=== PATIENT | male | born 1955 | race Hispanic/Latino ===

== ENCOUNTER 2018-02-21 07:44 | Emergency (ER) | payer SELFPAY ==
[2018-02-21 08:27] LABS: #Eosinphils 0.2 thou/uL (0.0-0.7); #Lymphocytes 1.1 thou/uL (1.20-3.40); #Monocytes 0.7 thou/uL (0.11-0.59); #Neutrophils 6.9 thou/uL (1.40-6.50); %Basophils 0.4 % (0.0-1.0); %Eosinophils 2.1 % (0.0-10.0); %Lymphocytes 12.7 % (21.0-51.0); %Monocytes 7.9 % (0.0-10.0); %Neutrophils 76.8 % (42.0-75.0); Hemoglobin 13.3 g/dL (14.0-18.0); Mean Corpuscular HGB CONC 33.1 g/dL (32.0-36.0); Mean Corpuscular Hemoglobin 28.6 pg (27.0-31.0); Mean Corpuscular Volume 86.5 fL (78.0-98.0); Mean Platelet Volume 6.6 fL (7.4-10.4); Platelet Count 300 thou/uL (130-400); RBC Distribution Width 14.6 % (11.5-14.5); Red Blood Cell (RBC) Count 4.66 mill/uL (4.70-6.10)
[2018-02-21 08:51] LABS: CKMB 2.1 ng/mL (0-6.6); Troponin I 0.029 ng/mL (< 0.028)
[2018-02-21 09:03] LABS: ALT (SGPT) 28 U/L (8-55); AST (SGOT) 31 U/L (5-34); Alkaline Phosphatase 137 U/L (40-150); Anion Gap 14 mmol/L (10-20); BUN (Urea Nitrogen) 17 mg/dL (8.4-25.7); Bilirubin, Total 0.9 mg/dL (0.2-1.2); CK (CPK) 130 U/L (30-200); Calc. Creatinine Clearance 0 mL/min (70-130); Calcium 8.9 mg/dL (7.8-10.44); Carbon Dioxide 26 mmol/L (23-31); Chloride 102 mmol/L (98-107); Estimated GFR-MDRD 62; Globulin 5.5 g/dL (2.4-3.5); Glucose 119 mg/dL (80-115); Lipase 16 U/L (8-78); Potassium 3.5 mmol/L (3.5-5.1); Protein, Total 9.5 g/dL (5.8-8.1); Sodium 138 mmol/L (136-145)
--- NOTE | 2018-02-21 10:04 | RAD ---
SINGLE VIEW OF THE CHEST: COMPARISON: None. HISTORY: Chest pain and swelling in the right leg. FINDINGS: A single view of the chest shows an enlarged cardiomediastinal silhouette. There is no evidence of c onsolidation, mass, or pleural effusion. Degenerative changes are seen in the spine. IMPRESSION: Cardiomegaly. POS: [facility]
[2018-02-21] MEDS ORDERED: Furosemide 40 MG TAB ONE (10:15)
[2018-02-21] MEDS ORDERED: Acetaminophen 500 MG TAB ONE (10:15)
--- NOTE | 2018-02-21 10:26 | ULT ---
BILATERAL LOWER EXTREMITY VENOUS ULTRASOUND: COMPARISON: None. HISTORY: Right lower extremity pain and chronic venous stasis in both legs with edema. Elevated D-dimer. TECHNIQUE: Multiplanar, starks scale, and color Doppler images were obtained in a bilateral lower extremity venous ultrasound. Spectral analysis of the Doppler waveforms was performed. FINDINGS: The bilateral common femoral vein, profunda femoral vein, superficial femoral vein, and popliteal vei ns are normal in appearance without visible thrombus. These vessels demonstrate normal compression, flow, and augmentation. The posterior tibial veins and greater saphenous veins are also patent. IMPRESSION: No evidence of deep vein thrombosis. POS: [facility]
[2018-02-21 10:47] LABS: Troponin I 0.028 ng/mL (< 0.028)
== END 2018-02-21 11:50 | disposition home or self-care (01) ==
LOC: ERS 07:44
DX: I50.9 Heart failure, unspecified (principal); R60.0 Localized edema
CPT/HCPCS: 36415; 71045; 80053; 82553; 83690; 83880; 84484; 85025; 85379; 93005; 93970

== ENCOUNTER 2019-04-20 18:37 | Emergency (ER) | payer SELFPAY | END 2019-04-20 23:00 | disposition home or self-care (01) | LOC: ERS 18:37 | DX: I83.891 Varicose veins of right lower extremity with other complications (principal); I10 Essential (primary) hypertension; Z79.899 Other long term (current) drug therapy | CPT/HCPCS: 99282 ==

== ENCOUNTER 2021-05-15 11:47 | Inpatient (IN) | payer SELFPAY ==
[~2021-05-15 11:47] MED LIST: Iopamidol-370 76% 500 ML 1 ML ONE
[2021-05-15 12:58] LABS: #Eosinphils 0.2 thou/uL (0.0-0.7); #Lymphocytes 0.9 thou/uL (1.20-3.40); #Monocytes 0.6 thou/uL (0.11-0.59); #Neutrophils 5.7 thou/uL (1.40-6.50); %Basophils 0.4 % (0.0-1.0); %Eosinophils 2.5 % (0.0-10.0); %Lymphocytes 12.2 % (21.0-51.0); %Monocytes 7.8 % (0.0-10.0); %Neutrophils 77.1 % (42.0-75.0); Hemoglobin 14.4 g/dL (14.0-18.0); Mean Corpuscular HGB CONC 30.7 g/dL (32.0-36.0); Mean Corpuscular Hemoglobin 26.8 pg (27.0-31.0); Mean Corpuscular Volume 87.4 fL (78.0-98.0); Mean Platelet Volume 8.2 fL (7.4-10.4); Platelet Count 241 thou/uL (130-400); RBC Distribution Width 17.5 % (11.5-14.5); Red Blood Cell (RBC) Count 5.36 mill/uL (4.70-6.10); White Blood Cell (WBC) Count 7.4 thou/uL (4.8-10.8)
[2021-05-15 13:09] LABS: ALT (SGPT) 14 U/L (8-55); AST (SGOT) 28 U/L (5-34); Albumin 3.7 g/dL (3.4-4.8); Alkaline Phosphatase 123 U/L (40-110); Anion Gap 15 mmol/L (10-20); BUN (Urea Nitrogen) 19 mg/dL (8.4-25.7); Bilirubin, Total 0.9 mg/dL (0.2-1.2); Calc. Creatinine Clearance 0 mL/min (70-130); Calcium 8.5 mg/dL (7.8-10.44); Carbon Dioxide 25 mmol/L (23-31); Chloride 105 mmol/L (98-107); Globulin 4.3 g/dL (2.4-3.5); Glucose 97 mg/dL (80-115); Lipase 17 U/L (8-78); Potassium 4.5 mmol/L (3.5-5.1); Sodium 140 mmol/L (136-145)
[2021-05-15] MEDS ORDERED: Diltiazem 125 MG/25 ML ONE ×2 (13:11→15:48)
[2021-05-15 14:08] LABS: CKMB 3.2 ng/mL (0-6.6)
[2021-05-15 14:41] LABS: Clarity Clear (Clear); Glucose, Urine (Dipstick) Normal (Negative); Ketone, Urine Negative (Negative); Leukocyte 75 Leu/uL (Negative); Nitrite Negative (Negative); Protein, Urine (Dipstick) 300 mg/dL (Neg-Trace); Specific Gravity, Urine 1.022 (1.002-1.036)
[2021-05-15 14:42] LABS: Bilirubin Negative (Negative); Blood, Urine Negative (Negative); Urobilinogen Normal mg/dL (Less than 2)
[2021-05-15 14:50] LABS: RBC/HPF None Seen HPF (0-3)
[2021-05-15 14:50] LABS: INR-International Normal Ratio 1.2; PTT 33.1 sec (22.9-36.1); Prothrombin Time 15.2 sec (12.0-14.7)
[2021-05-15 14:52] LABS: Bacteria/HPF None Seen HPF (None Seen); Squamous Epithelial None Seen HPF (0-3)
[2021-05-15] MEDS ORDERED: Acetaminophen 500 MG TAB ONE (15:48)
[2021-05-15] MEDS ORDERED: Aspirin Chewable 81 MG TAB ONE (15:48)
[2021-05-15] MEDS ORDERED: Enoxaparin Sodium 100 MG/ML SYRINGE ONE (16:06)
[2021-05-15] MEDS ORDERED: Aspirin 325 MG TAB ONE (16:07)
[2021-05-15] MEDS ORDERED: Enoxaparin Sodium 60 MG/0.6 ML SYRINGE ONE (16:08)
[2021-05-15] MEDS ORDERED: Enoxaparin Sodium 30 MG/0.3 ML SYRINGE ONE (16:08)
[2021-05-15] MEDS ORDERED: Ondansetron ODT 4 MG TAB SL PRN (18:30)
[2021-05-15] MEDS ORDERED: Sodium Chloride 0.9% 1,000 ML IV SCH (18:30)
[2021-05-15] MEDS ORDERED: Ondansetron PF 4 MG/2 ML Vial IVP PRN ×2 (18:30→18:35)
[2021-05-15] MEDS ORDERED: Acetaminophen 325 MG TAB PO PRN ×2 (18:30→18:35)
[2021-05-15] MEDS ORDERED: Ondansetron ODT 4 MG TAB PO PRN (18:35)
[2021-05-15] MEDS ORDERED: Calcium Carbonate 500 MG ChewTAB PO PRN (18:35)
[2021-05-15] MEDS ORDERED: [UNRECOGNIZED DRUG - REMARK] FS PRN (18:37)
[2021-05-15] MEDS ORDERED: Diltiazem 125 MG in Sodium Chloride 0.9% 100 ML IVPB SCH (18:45)
[2021-05-15 19:42] LABS: Magnesium 1.8 mg/dL (1.6-2.6)
[2021-05-15 19:47] LABS: Troponin I 0.094 ng/mL (< 0.028)
[2021-05-15] MEDS: Famotidine 20 MG TAB PO SCH (20:46)
[2021-05-15] MEDS: Senokot S 8.6-50 MG TAB PO SCH (20:46)
[2021-05-15] MEDS: Carvedilol 3.125 MG TAB PO SCH (20:46)
[2021-05-16] MEDS ORDERED: Enoxaparin Sodium 100 MG/ML SYRINGE SC SCH (04:00)
[2021-05-16 04:37] LABS: #Eosinphils 0.1 thou/uL (0.0-0.7); #Lymphocytes 0.8 thou/uL (1.20-3.40); #Monocytes 0.8 thou/uL (0.11-0.59); #Neutrophils 7.5 thou/uL (1.40-6.50); %Basophils 0.5 % (0.0-1.0); %Eosinophils 1.2 % (0.0-10.0); %Lymphocytes 8.4 % (21.0-51.0); %Monocytes 8.6 % (0.0-10.0); %Neutrophils 81.4 % (42.0-75.0); Hemoglobin 14.5 g/dL (14.0-18.0); Mean Corpuscular Hemoglobin 26.4 pg (27.0-31.0); Mean Corpuscular Volume 87.9 fL (78.0-98.0); Mean Platelet Volume 8.9 fL (7.4-10.4); Platelet Count 227 thou/uL (130-400); RBC Distribution Width 17.7 % (11.5-14.5); Red Blood Cell (RBC) Count 5.49 mill/uL (4.70-6.10); White Blood Cell (WBC) Count 9.2 thou/uL (4.8-10.8)
[2021-05-16 04:57] LABS: ALT (SGPT) 15 U/L (8-55); AST (SGOT) 25 U/L (5-34); Albumin 3.7 g/dL (3.4-4.8); Alkaline Phosphatase 110 U/L (40-110); Anion Gap 15 mmol/L (10-20); BUN (Urea Nitrogen) 21 mg/dL (8.4-25.7); Bilirubin, Total 1.5 mg/dL (0.2-1.2); Calc. Creatinine Clearance 49 mL/min (70-130); Calcium 8.2 mg/dL (7.8-10.44); Carbon Dioxide 22 mmol/L (23-31); Chloride 106 mmol/L (98-107); Globulin 4.3 g/dL (2.4-3.5); Glucose 115 mg/dL (80-115); Magnesium 2.1 mg/dL (1.6-2.6); Potassium 4.6 mmol/L (3.5-5.1); Sodium 138 mmol/L (136-145)
[2021-05-16] MEDS: Furosemide 40 MG/4 ML VIAL SLOW IVP SCH ×2 (05:43→14:18)
[2021-05-16] MEDS: Senokot S 8.6-50 MG TAB PO SCH ×2 (08:26→21:10)
[2021-05-16] MEDS: Carvedilol 3.125 MG TAB PO SCH (08:27)
[2021-05-16] MEDS: Aspirin 81 mg Enteric Coated Tablet PO SCH (08:27)
[2021-05-16 12:03] LABS: SARS-CoV-2 PCR by NAA Not Detected (NotDetected)
[2021-05-16] MEDS ORDERED: hydrALAZINE 20 MG/ML VIAL SLOW IVP PRN (13:36)
[2021-05-16] MEDS: Enoxaparin Sodium 100 MG/ML SYRINGE SC SCH ×2 (14:12→21:09)
[2021-05-16 17:25] LABS: Creatinine, Urine 25.35 mg/dL (63-166)
[2021-05-16] MEDS: Carvedilol 6.25 MG TAB PO SCH (21:10)
[2021-05-16] MEDS: Famotidine 20 MG TAB PO SCH (21:11)
[2021-05-17 05:02] LABS: #Basophils 0.1 thou/uL (0.0-0.2); #Eosinphils 0.3 thou/uL (0.0-0.7); #Lymphocytes 1.1 thou/uL (1.20-3.40); #Neutrophils 5.7 thou/uL (1.40-6.50); %Basophils 1.1 % (0.0-1.0); %Eosinophils 3.2 % (0.0-10.0); %Lymphocytes 13.4 % (21.0-51.0); %Monocytes 11.7 % (0.0-10.0); %Neutrophils 70.6 % (42.0-75.0); Hemoglobin 14.3 g/dL (14.0-18.0); Mean Corpuscular HGB CONC 30.8 g/dL (32.0-36.0); Mean Corpuscular Hemoglobin 26.9 pg (27.0-31.0); Mean Corpuscular Volume 87.3 fL (78.0-98.0); Mean Platelet Volume 9.2 fL (7.4-10.4); Platelet Count 224 thou/uL (130-400); RBC Distribution Width 17.4 % (11.5-14.5); Red Blood Cell (RBC) Count 5.32 mill/uL (4.70-6.10); White Blood Cell (WBC) Count 8.1 thou/uL (4.8-10.8)
[2021-05-17 05:22] LABS: ALT (SGPT) 17 U/L (8-55); AST (SGOT) 30 U/L (5-34); Albumin 3.6 g/dL (3.4-4.8); Alkaline Phosphatase 104 U/L (40-110); Anion Gap 16 mmol/L (10-20); BUN (Urea Nitrogen) 29 mg/dL (8.4-25.7); Bilirubin, Total 1.2 mg/dL (0.2-1.2); Calc. Creatinine Clearance 51 mL/min (70-130); Calcium 8.4 mg/dL (7.8-10.44); Carbon Dioxide 25 mmol/L (23-31); Chloride 103 mmol/L (98-107); Globulin 4.2 g/dL (2.4-3.5); Glucose 92 mg/dL (80-115); Potassium 4.3 mmol/L (3.5-5.1); Protein, Total 7.8 g/dL (5.8-8.1); Sodium 140 mmol/L (136-145)
[2021-05-17] MEDS: Furosemide 40 MG/4 ML VIAL SLOW IVP SCH ×2 (05:31→14:00)
[2021-05-17] MEDS: Aspirin 81 mg Enteric Coated Tablet PO SCH (08:46)
[2021-05-17] MEDS: Senokot S 8.6-50 MG TAB PO SCH ×2 (08:46→21:31)
[2021-05-17] MEDS: Enoxaparin Sodium 100 MG/ML SYRINGE SC SCH ×2 (08:47→21:30)
[2021-05-17] MEDS: Carvedilol 6.25 MG TAB PO SCH ×2 (08:47→21:31)
[2021-05-17] MEDS ORDERED: Spironolactone 25 MG TAB PO SCH (10:00)
[2021-05-17] MEDS ORDERED: Metolazone 2.5 MG TAB PO SCH (13:30)
[2021-05-17] MEDS: Famotidine 20 MG TAB PO SCH (21:31)
[2021-05-18] MEDS: Furosemide 40 MG/4 ML VIAL SLOW IVP SCH ×3 (06:00→15:09)
[2021-05-18] MEDS ORDERED: Spironolactone 25 MG TAB PO SCH ×2 (08:00→19:15)
[2021-05-18] MEDS: Aspirin 81 mg Enteric Coated Tablet PO SCH (09:04)
[2021-05-18] MEDS: Senokot S 8.6-50 MG TAB PO SCH ×2 (09:04→21:04)
[2021-05-18] MEDS: Carvedilol 6.25 MG TAB PO SCH ×2 (09:04→21:04)
[2021-05-18] MEDS: Enoxaparin Sodium 100 MG/ML SYRINGE SC SCH ×2 (09:04→21:06)
[2021-05-18 12:19] LABS: #Basophils 0.1 thou/uL (0.0-0.2); #Eosinphils 0.2 thou/uL (0.0-0.7); #Monocytes 0.8 thou/uL (0.11-0.59); %Basophils 0.7 % (0.0-1.0); %Eosinophils 2.9 % (0.0-10.0); %Lymphocytes 14.3 % (21.0-51.0); %Monocytes 10.7 % (0.0-10.0); %Neutrophils 71.4 % (42.0-75.0); Hemoglobin 14.3 g/dL (14.0-18.0); Mean Corpuscular Hemoglobin 26.9 pg (27.0-31.0); Mean Corpuscular Volume 86.8 fL (78.0-98.0); Mean Platelet Volume 8.3 fL (7.4-10.4); Platelet Count 256 thou/uL (130-400); Red Blood Cell (RBC) Count 5.34 mill/uL (4.70-6.10)
[2021-05-18 12:41] LABS: Anion Gap 13 mmol/L (10-20); Anion Gap 17 mmol/L (10-20); BUN (Urea Nitrogen) 30 mg/dL (8.4-25.7); Calc. Creatinine Clearance 50 mL/min (70-130); Calc. Creatinine Clearance 51 mL/min (70-130); Calcium 9.4 mg/dL (7.8-10.44); Carbon Dioxide 29 mmol/L (23-31); Carbon Dioxide 33 mmol/L (23-31); Chloride 97 mmol/L (98-107); Chloride 98 mmol/L (98-107); Glucose 105 mg/dL (80-115); Potassium 3.6 mmol/L (3.5-5.1); Sodium 139 mmol/L (136-145); Sodium 140 mmol/L (136-145)
[2021-05-18 12:42] LABS: ALT (SGPT) 17 U/L (8-55); AST (SGOT) 30 U/L (5-34); Albumin 3.9 g/dL (3.4-4.8); Alkaline Phosphatase 120 U/L (40-110); Bilirubin, Total 1.1 mg/dL (0.2-1.2); Calcium 9.4 mg/dL (7.8-10.44); Globulin 4.9 g/dL (2.4-3.5); Glucose 106 mg/dL (80-115); Magnesium 2.1 mg/dL (1.6-2.6); Protein, Total 8.8 g/dL (5.8-8.1)
[2021-05-18] MEDS: Famotidine 20 MG TAB PO SCH (21:05)
[2021-05-19] MEDS: Furosemide 40 MG/4 ML VIAL SLOW IVP SCH (05:58)
[2021-05-19] MEDS ORDERED: Carvedilol 3.125 MG TAB PO SCH (08:00)
[2021-05-19] MEDS: Aspirin 81 mg Enteric Coated Tablet PO SCH (08:47)
[2021-05-19] MEDS: Enoxaparin Sodium 100 MG/ML SYRINGE SC SCH ×2 (08:47→21:26)
[2021-05-19] MEDS: Senokot S 8.6-50 MG TAB PO SCH ×2 (08:48→21:26)
[2021-05-19] MEDS: Spironolactone 100 MG TAB PO SCH (08:49)
[2021-05-19] MEDS ORDERED: Acetylcysteine 20% 200 MG/ML 30 ML VIAL PO SCH (10:00)
[2021-05-19 13:59] LABS: Chloride 94 mmol/L (98-107); Potassium 3.7 mmol/L (3.5-5.1); Sodium 138 mmol/L (136-145)
[2021-05-19 14:00] LABS: Calcium 9.5 mg/dL (7.8-10.44); Glucose 124 mg/dL (80-115)
[2021-05-19 14:02] LABS: Anion Gap 16 mmol/L (10-20); Carbon Dioxide 32 mmol/L (23-31)
[2021-05-19 14:04] LABS: BUN (Urea Nitrogen) 29 mg/dL (8.4-25.7); Calc. Creatinine Clearance 49 mL/min (70-130)
[2021-05-19] MEDS ORDERED: Communication Order-Pharmacy FS SCH (16:30)
[2021-05-19] MEDS: Famotidine 20 MG TAB PO SCH (21:26)
[2021-05-19] MEDS: Acetylcysteine 20% 200 MG/ML 30 ML VIAL PO SCH (22:09)
[2021-05-20 04:53] VITALS: BMI 33.6
[2021-05-20 05:11] LABS: #Eosinphils 0.3 thou/uL (0.0-0.7); #Lymphocytes 1.2 thou/uL (1.20-3.40); #Monocytes 0.8 thou/uL (0.11-0.59); #Neutrophils 3.8 thou/uL (1.40-6.50); %Basophils 0.4 % (0.0-1.0); %Eosinophils 4.6 % (0.0-10.0); %Monocytes 13.3 % (0.0-10.0); %Neutrophils 62.6 % (42.0-75.0); Hemoglobin 14.5 g/dL (14.0-18.0); Mean Corpuscular HGB CONC 30.8 g/dL (32.0-36.0); Mean Corpuscular Hemoglobin 26.4 pg (27.0-31.0); Mean Corpuscular Volume 85.6 fL (78.0-98.0); Mean Platelet Volume 8.7 fL (7.4-10.4); Platelet Count 238 thou/uL (130-400); RBC Distribution Width 16.8 % (11.5-14.5); Red Blood Cell (RBC) Count 5.51 mill/uL (4.70-6.10); White Blood Cell (WBC) Count 6.1 thou/uL (4.8-10.8)
[2021-05-20 05:38] LABS: Anion Gap 14 mmol/L (10-20); BUN (Urea Nitrogen) 33 mg/dL (8.4-25.7); Calc. Creatinine Clearance 45 mL/min (70-130); Calcium 9.3 mg/dL (7.8-10.44); Carbon Dioxide 29 mmol/L (23-31); Chloride 95 mmol/L (98-107); Glucose 88 mg/dL (80-115); Magnesium 2.1 mg/dL (1.6-2.6); Potassium 4.1 mmol/L (3.5-5.1); Sodium 134 mmol/L (136-145)
[2021-05-20] MEDS ORDERED: Sodium Chloride 0.9% 1,000 ML IV SCH (06:00)
[2021-05-20] MEDS ORDERED: Lidocaine 1% (PF) 30 ML VIAL ONE (07:06)
[2021-05-20] MEDS ORDERED: Midazolam HCl 2 mg/2 ml Vial ONE (07:14)
[2021-05-20] MEDS ORDERED: Fentanyl 100 MCG/2 ML VIAL ONE (07:14)
[2021-05-20] MEDS ORDERED: hydrALAZINE 20 MG/ML VIAL ONE (07:29)
[2021-05-20] MEDS ORDERED: Furosemide 20 MG/2 ML VIAL SLOW IVP SCH (09:00)
[2021-05-20] MEDS: Senokot S 8.6-50 MG TAB PO SCH ×2 (10:26→21:35)
[2021-05-20] MEDS: Acetylcysteine 20% 200 MG/ML 30 ML VIAL PO SCH ×2 (10:26→21:36)
[2021-05-20] MEDS: Aspirin 81 mg Enteric Coated Tablet PO SCH (10:26)
[2021-05-20] MEDS ORDERED: Sodium Chloride 0.9% 200 ML IV PRN (12:22)
[2021-05-20] MEDS ORDERED: Acetaminophen/Codeine 30-300mg Tablet PO PRN ×2 (12:22)
[2021-05-20] MEDS ORDERED: Nitroglycerin 0.4 MG TAB (25 Tab Bottle) SL PRN (12:22)
[2021-05-20] MEDS: Sodium Chloride 0.9% 1,000 ML IV SCH ×2 (12:44→16:43)
[2021-05-20] MEDS ORDERED: Iopamidol 370 76% 100 ML VIAL ONE (15:16)
[2021-05-20] MEDS: Famotidine 20 MG TAB PO SCH (21:35)
[2021-05-21] MEDS: Aspirin 81 mg Enteric Coated Tablet PO SCH (07:46)
[2021-05-21] MEDS: Senokot S 8.6-50 MG TAB PO SCH (07:46)
[2021-05-21] MEDS ORDERED: Lidocaine 1% w/Epinephrine 1:100K 20 ML VIAL ONE (07:54)
[2021-05-21] MEDS ORDERED: Triple Antibiotic Oint 1 GM Packet TOP PRN (09:10)
[2021-05-21 10:25] LABS: Albumin 3.5 g/dL (3.4-4.8); Anion Gap 13 mmol/L (10-20); BUN (Urea Nitrogen) 26 mg/dL (8.4-25.7); BUN/Creatinine Ratio 15.66; Calc. Creatinine Clearance 51 mL/min (70-130); Calcium 9.1 mg/dL (7.8-10.44); Carbon Dioxide 23 mmol/L (23-31); Chloride 103 mmol/L (98-107); Glucose 161 mg/dL (80-115); Phosphorus 2.3 mg/dL (2.3-4.7); Potassium 4.1 mmol/L (3.5-5.1); Sodium 135 mmol/L (136-145)
[2021-05-21] MEDS: Spironolactone 100 MG TAB PO SCH (11:51)
[2021-05-21] MEDS ORDERED: Isosorbide Dinitrate 20 MG TAB PO SCH (15:00)
[2021-05-21] MEDS ORDERED: hydrALAZINE 10 MG TAB PO SCH (15:00)
[2021-05-21 16:26] VITALS: BP 150/70; TEMP 98
[2021-05-21] MEDS ORDERED: Cephalexin 250 MG CAP PO SCH (21:00)
== END 2021-05-21 19:04 | disposition home or self-care (01) | DRG 286 ==
LOC: ERS 11:47 → 2NO 16:04
PROVIDERS: ADMIT Internal Medicine; ATTEND Internal Medicine
PROC: 4A023N7 Measurement of Cardiac Sampling and Pressure, Left Heart, Percutaneous Approach (ICD-10-PCS; principal; 2021-05-20)
PROC: B2111ZZ Fluoroscopy of Multiple Coronary Arteries using Low Osmolar Contrast (ICD-10-PCS; 2021-05-20)
DX: I13.0 Hypertensive heart and chronic kidney disease with heart failure and stage 1 through stage 4 chronic kidney disease, or unspecified chronic kidney disease (principal); I50.43 Acute on chronic combined systolic (congestive) and diastolic (congestive) heart failure; N17.9 Acute kidney failure, unspecified; R18.8 Other ascites; D68.9 Coagulation defect, unspecified; N18.30 Chronic kidney disease, stage 3 unspecified; K74.60 Unspecified cirrhosis of liver; I48.0 Paroxysmal atrial fibrillation; I08.1 Rheumatic disorders of both mitral and tricuspid valves; G47.33 Obstructive sleep apnea (adult) (pediatric); E66.01 Morbid (severe) obesity due to excess calories; I25.10 Atherosclerotic heart disease of native coronary artery without angina pectoris; Z20.822 Contact with and (suspected) exposure to COVID-19; I42.8 Other cardiomyopathies; Z87.891 Personal history of nicotine dependence; Z68.33 Body mass index [BMI] 33.0-33.9, adult
CPT/HCPCS: 36415; 71046; 74177; 76942; 80048; 80053; 80069; 81003; 81015; 82553; 82570; 83690; 83735; 83880; 84156; 84300; 84443; 84484; 84540; 85025; 85610; 85730; 90471; 90732; 93005; 93010; 93306; 93458; 93798; 97139; 99152; G0009; J0132; J0360; J1650; J1940; J2001; J2250; J3010; J7050; Q9967; U0003; U0005

== ENCOUNTER 2021-05-24 12:23 | Emergency (ER) | payer SELFPAY ==
[2021-05-24] MEDS ORDERED: Bacitracin 1 PK ONE (15:03)
== END 2021-05-24 15:08 | disposition home or self-care (01) ==
LOC: ERS 12:23
DX: Z48.812 Encounter for surgical aftercare following surgery on the circulatory system (principal); I11.0 Hypertensive heart disease with heart failure; I50.9 Heart failure, unspecified; I48.91 Unspecified atrial fibrillation; Z79.82 Long term (current) use of aspirin; Z79.01 Long term (current) use of anticoagulants; Z79.899 Other long term (current) drug therapy